=== PATIENT | female | born 1965 | race African-American/Black ===

== ENCOUNTER 2016-10-13 11:03 | Emergency (ER) | payer SELFPAY ==
[2016-10-13 11:15] VITALS: BP 195/105; BMI 37.8
--- NOTE | 2016-10-13 11:31 | DR.GENAD ---
HPI - PCP Primary Care Physician: NFD - Complaint/Symptoms Chief Complaint Doctors Comments: Patient states that she has a uterine firbroid and when it gets bigger she starts to having vaginal bleeding. The SOB is due to vaginal discharge. She has not physician. She goes to the [facility]. Chief Complaint:: VAGINAL BLEEDING AND SOB - Source History Provided: Patient - Mode of Arrival Mode of Arrival: Ambulatory - Timing Onset of Chief Complaint: 10/12/16 PMH - PMH Past Medical History: Yes Past Medical History: Anemia, Hypertension Past Surgical History: No Surgical History: No History - Family History History of Family Medical Conditions: Yes Family Medical History: Diabetes Mellitus, Hypertension - Social History Does patient currently use any type of tobacco product: Yes Type of Tobacco Use: Cigarettes How many years tobacco product used: 10 Alcohol Use: Occasionally Do you use any recreational Drugs:: No Lives With: Alone Lives Where: Home - infectious screening In the last 2 months have you had wt loss of >10#?: NO Have you had fever, night sweats or hemotysis?: No Have you traveled outside the country in the last 6 months?: No Isolation: Standard ROS - Review of Systems Eyes: No Symptoms Reported ENTM: See HPI Respiratoy: No Symptoms Reported Cardiovascular: No Symptoms Reported Gastrointestinal/Abdominal: No Symptoms Reported, Abdominal Pain PE - Vital Signs Vitals: Temperature 98.2 F Pulse Rate 66 Respiratory Rate 16 Blood Pressure [Right Arm] 156/84 Blood Pressure [Left Arm] 178/85 Blood Pressure 195/105 O2 Sat by Pulse Oximetry 100 - General Limitations: No Limitations General Appearance: Alert, In No Apparent Distress - Head Head Exam: Normal Inspection, Atraumatic - Eyes Eye exam: Normal Appearance, PERRL, EOMI - ENT External Ear Exam: Normal External Inspection TM/Canal Exam: Bilateral Normal Nose Exam: Normal Nose Exam Mouth Exam: Normal Inspection Throat Exam: Normal Inspection - Neck Neck Exam: Normal Inspection, Full ROM - Chest Chest Inspection: Normal Inspection - Respiratory Respiratory Exam: Bilateral Clear to Auscultation - Cardiovascular Cardiovascular Exam: Regular Rate, Normal Rhythm - Abdominal Exam Abdominal Exam: Normal Inspection, Normal Bowel Sounds Abdominal Tenderness: negative: RUQ, RLQ, LUQ, LLQ, Epigastrium, Suprapubic, Diffuse, Mild, Moderate, Severe, Other - Extremities Extremities Exam: Normal Inspection, Full ROM - Back Back Exam: Normal Inspection - Neurologic Neurological Exam: Alert, Oriented X3, CN II-XII Intact - Psychiatric Psychiatric Exam: Normal Affect - Skin Skin Exam: Warm, Dry, Intact ROR - Labs Reviewed Laboratory Results Reviewed?: Yes Result Diagrams: 10/13/16 12:25 10/13/16 12:25 Laboratory: WBC 6.4 X10^3/uL (3.6-10.0) 10/13/16 12: RBC 4.83 X10^6/uL (3.5-5.4) 10/13/16 12:25 Hgb 11.6 g/dL (12.0-16.0) L 10/13/16 12: Hct 35.4 % (36.0-47.0) L 10/13/16 12: MCV 73.4 fL (80.0-100.0) L 10/13/16 12: MCH 24.1 pg (27.0-34.0) L 10/13/16 12: MCHC 32.8 g/dL (33.0-35.0) L 10/13/16 12: RDW 20.1 % (11.6-16.5) H 10/13/16 12:25 Plt Count 253 X10^3/uL (150.0-450.0) 10/13/16 12:25 Plt Count Comment Adequate (ADEQUATE) 10/13/16 12: MPV 9.1 fL (7.4-11.0) 10/13/16 12:25 Neut % 57.4 % (42.0-75.0) 10/13/16 12: Lymph % 24.9 % (21.0-51.0) 10/13/16 12:25 [place] % 11.1 % (0.0-13.0) 10/13/16 12:25 Eos % 5.1 % (0.9-2.9) H 10/13/16 12:25 Baso % 1.5 % (0.2-1.0) H 10/13/16 12:25 Neut # 3.7 x10^3/uL (2.2-4.8) 10/13/16 12:25 Lymph # 1.6 X10^3/uL (1.3-2.9) 10/13/16 12:25 [place] # 0.7 x10^3/uL (0.3-0.8) 10/13/16 12:25 Eos # 0.3 x10^3/uL (0.0-0.2) H 10/13/16 12:25 Baso # 0.1 X10^3/uL (0.0-0.1) 10/13/16 12:25 Absolute Nucleated RBC 0.3 /100WBC 10/13/16 12:25 Plt Morphology Comment Normal (NORMAL) 10/13/16 12:25 RBC Morphology Normal (NORMAL) 10/13/16 12:25 Sodium 140 mmol/L (136-145) 10/13/16 12:25 Corrected Sodium TNP 10/13/16 12:25 Potassium 4.1 mmol/L (3.5-5.1) 10/13/16 12:25 Chloride 105 mmol/L (98-107) 10/13/16 12:25 Carbon Dioxide 27.8 mmol/L (21-32) 10/13/16 12:25 BUN 16 mg/dL (7-18) 10/13/16 12:25 Creatinine 0.78 mg/dL (0.55-1.02) 10/13/16 12:25 Est GFR (MDRD) Af Amer > 60 (>60) 10/13/16 12:25 Est GFR (MDRD) Non-Af > 60 (>60) 10/13/16 12:25 Glucose 100 mg/dL (65-99) H 10/13/16 12:25 Calcium 8.5 mg/dL (8.5-10.1) 10/13/16 12:25 Corrected Calcium 9.1 mg/dL (8.5-10.1) 10/13/16 12:25 Total Bilirubin 0.30 mg/dL (0.2-1.0) 10/13/16 12:25 AST 24 Units/L (15-37) 10/13/16 12:25 ALT 29 Units/L (12-78) 10/13/16 12:25 Alkaline Phosphatase 85 Units/L (46-116) 10/13/16 12:25 B-Natriuretic Peptide 23.4 pg/mL (0-79) 10/13/16 12:25 Total Protein 8.2 g/dL (6.4-8.2) 10/13/16 12:25 Albumin 3.2 g/dL (3.4-5.0) L 10/13/16 12:25 Globulin 5.0 g/dL (2.5-4.5) H 10/13/16 12:25 Albumin/Globulin Ratio 0.6 Ratio (1.1-2.1) L 10/13/16 12:25 - Diagnosis Discharge Problem: Dysfunctional uterine bleeding - Discharge Plan Condition: Stable - Follow ups/Referrals Follow ups/Referrals: NFD,None [Primary Care Provider] - 3 days - Instructions
--- NOTE | 2016-10-13 12:41 | RAD ---
HISTORY: Shortness of breath Study: Two view chest Comparison: 10/28/2013 Findings: The lungs are clear without consolidation, effusion or pneumothorax. The cardiac and mediastinal co ntours are within normal limits. The soft tissues are unremarkable. IMPRESSION: 1. No acute cardiopulmonary abnormality. Reported By:
[2016-10-13 12:43] LABS: BASOPHILS # (AUTO) 0.1 X10^3/uL (0.0-0.1); BASOPHILS % (AUTO) 1.5 % (0.2-1.0); EOSINOPHILS # (AUTO) 0.3 x10^3/uL (0.0-0.2); EOSINOPHILS % (AUTO) 5.1 % (0.9-2.9); HEMATOCRIT 35.4 % (36.0-47.0); HEMOGLOBIN 11.6 g/dL (12.0-16.0); LYMPHOCYTES # (AUTO) 1.6 X10^3/uL (1.3-2.9); LYMPHOCYTES % (AUTO) 24.9 % (21.0-51.0); MEAN CORPUSCULAR HEMOGLOBIN 24.1 pg (27.0-34.0); MEAN CORPUSCULAR HGB CONC 32.8 g/dL (33.0-35.0); MEAN CORPUSCULAR VOLUME 73.4 fL (80.0-100.0); MEAN PLATELET VOLUME 9.1 fL (7.4-11.0); MONOCYTES # (AUTO) 0.7 x10^3/uL (0.3-0.8); MONOCYTES % (AUTO) 11.1 % (0.0-13.0); NEUTROPHILS # (AUTO) 3.7 x10^3/uL (2.2-4.8); NEUTROPHILS % (AUTO) 57.4 % (42.0-75.0); PLATELET COUNT 253 X10^3/uL (150.0-450.0); RED BLOOD COUNT 4.83 X10^6/uL (3.5-5.4); RED CELL DISTRIBUTION WIDTH 20.1 % (11.6-16.5); WHITE BLOOD COUNT 6.4 X10^3/uL (3.6-10.0)
[2016-10-13 12:58] LABS: B-TYPE NATRIURETIC PEPTIDE 23.4 pg/mL (0-79)
[2016-10-13 12:59] LABS: PLATELET MORPHOLOGY COMMENT NORMAL (NORMAL)
[2016-10-13 13:09] LABS: ALANINE AMINOTRANSFERASE 29 Units/L (12-78); ALBUMIN 3.2 g/dL (3.4-5.0); ALKALINE PHOSPHATASE 85 Units/L (46-116); ASPARTATE AMINO TRANSFERASE 24 Units/L (15-37); BLOOD UREA NITROGEN 16 mg/dL (7-18); CALCIUM 8.5 mg/dL (8.5-10.1); CARBON DIOXIDE 27.8 mmol/L (21-32); CHLORIDE 105 mmol/L (98-107); COR CA(FOR HYPOALB) 9.1 mg/dL (8.5-10.1); CREATININE 0.78 mg/dL (0.55-1.02); GLUCOSE 100 mg/dL (65-99); SODIUM 140 mmol/L (136-145); TOTAL PROTEIN 8.2 g/dL (6.4-8.2); eGFR BLACK RACES > 60 (>60); eGFR NON BLACK RACES > 60 (>60)
== END 2016-10-13 13:36 | disposition home or self-care (01) ==
LOC: ER 11:03
DX: N93.8 Other specified abnormal uterine and vaginal bleeding (principal)
CPT/HCPCS: 36415; 71020; 80053; 83880; 85025; 99282

== ENCOUNTER 2018-08-15 10:10 | Observation (INO) ==
[2018-08-15] MEDS ORDERED: NS 1000 ML 1,000 ML ONE (10:30)
[2018-08-15] MEDS ORDERED: NS 1000 ML 1,000 ML IV ONE (10:31)
[2018-08-15 10:44] LABS: BASOPHILS # (AUTO) 0.1 X10^3/uL (0.0-0.1); BASOPHILS % (AUTO) 1.1 % (0.2-1.0); EOSINOPHILS # (AUTO) 0.1 x10^3/uL (0.0-0.2); EOSINOPHILS % (AUTO) 1.4 % (0.9-2.9); HEMATOCRIT 47.1 % (36.0-47.0); HEMOGLOBIN 16.1 g/dL (12.0-16.0); LYMPHOCYTES # (AUTO) 3.2 X10^3/uL (1.3-2.9); MEAN CORPUSCULAR HGB CONC 34.1 g/dL (33.0-35.0); MEAN CORPUSCULAR VOLUME 85.1 fL (80.0-100.0); MEAN PLATELET VOLUME 9.8 fL (7.4-11.0); NEUTROPHILS # (AUTO) 2.6 x10^3/uL (2.2-4.8); NEUTROPHILS % (AUTO) 37.5 % (42.0-75.0); PLATELET COUNT 111 X10^3/uL (150.0-450.0); RED BLOOD COUNT 5.54 X10^6/uL (3.5-5.4); RED CELL DISTRIBUTION WIDTH 14.4 % (11.6-16.5); WHITE BLOOD COUNT 6.9 X10^3/uL (3.6-10.0)
[2018-08-15] MEDS ORDERED: ADENOCARD INJ 6 MG IVP ONE (11:03)
[2018-08-15] MEDS ORDERED: ADENOCARD INJ 6 MG ONE (11:05)
--- NOTE | 2018-08-15 11:14 | RAD ---
HISTORY: Tachycardia, angina, cardiomyopathy, hypertension Study: Single-view chest, done portably Comparison: 04/12/2018. Findings: Trachea is midline. Heart size is upper normal with aortic uncoiling. There is very mild hyperinflation of the lungs without infiltrate, CHF or pleural fluid. There are increased interstitial markings bilaterally which appear chronic. IMPRESSION: Hypertensive configuration. Mild hyperinflation of the lungs with stable increased interstitial markings bilaterally. Reported By:
[2018-08-15 11:29] LABS: CKMB % 1.4 % (<4); CREATINE KINASE 79 Units/L (26-192); CREATINE KINASE MB 1.1 ng/mL (0-4.0); MAGNESIUM 1.9 mg/dL (1.7-2.9); TROPONIN I < 0.02 ng/mL (0-1.5); TSH (3RD GENERATION) 1.742 uIU/mL (0.358-3.74)
--- NOTE | 2018-08-15 11:34 | DR.EXTPAIN ---
HPI Time seen Time Seen by Provider: 08/15/18 10:31 PCP Primary Care Physician: pauly Complaint/Symptoms Chief Complaint Doctor Comments: Patient presented to the ED with complaint of sudden pounding fast heart beating. She denies a history of cardiopulmonary disease. Admits to 5-6 cigarettes daily. Does not have a physician and has not seen one in several years. Upon arrival her HR 170. EKG revealed Sinus tach at 160/min. She converted to Rate of 86/min after adenosine Chief Complaint:: patient stated she was cooking a ham and her heart started pounding and she felt like she was running. Source History Provided: Patient Mode of arrival Mode of Arrival: Ambulatory Timing Onset of Chief Complaint: 08/15/18 PMH PMH Past Medical History: Yes Past Medical History: Anemia, Angina and Hypertension Past Surgical History: No Family History History of Family Medical Conditions: Yes Family Medical History: Diabetes Mellitus and Hypertension Social History Does patient currently use any type of tobacco product: Yes Have you used tobacco products in the last 12 months: Yes Type of Tobacco Use: None Does any household member use tobacco: No Alcohol Use: Occasionally Do you use any recreational Drugs:: No Lives With: Family Lives Where: Home infectious screening In the last 2 months have you had wt loss of >10#?: NO Have you had fever, night sweats or hemotysis?: No Have you traveled outside the country in the last 6 months?: No Isolation: Standard PE Vital Signs Vitals: Temperature 98.3 F Pulse Rate [Apical] 63 Pulse Rate 166 Respiratory Rate 27 Blood Pressure [Right Arm] 173/87 Blood Pressure [Left Arm] 193/85 Blood Pressure 198/138 O2 Sat by Pulse Oximetry 100 General Limitations: No Limitations and Language Barrier General Appearance: Alert and In No Apparent Distress Head Head Exam: Normal Inspection and Normocephalic Eyes Eye exam: Normal Appearance, PERRL and EOMI ENT ENT Exam: Normal Exam, Normal Oropharynx and Normal External Ear Exam Neck Neck Exam: Normal Inspection, Full ROM and Trachea Midline Chest Chest Inspection: Normal Inspection, Symmetric Chest Wall Rise and Tenderness Respiratory Respiratory Exam: Normal Lung Sounds Bilat and Accessory Muscle Use Respiratory Exam: Bilateral: Clear to Auscultation Cardiovascular Cardiovascular Exam: Regular Rate and Normal Rhythm Abdominal Exam Abdominal Exam: Normal Inspection, Normal Bowel Sounds and Soft Abdominal Tenderness: RUQ, RLQ and LUQ Extremities Extremities Exam: Normal Inspection and Full ROM Upper Extremities Shoulder Exam: Normal Inspection and Full ROM Arm Exam: Normal Inspection Elbow Exam: Normal Inspection Forearm Exam: Normal Inspection and Full ROM Neuromotor Exam: Normal Exam Neurosensory Exam: Normal Exam Lower Extremities Hip/Pelvis Exam: Normal Inspection and Full ROM Upper Leg Exam: Swelling Knee Exam: Normal Inspection Lower Leg Exam: Normal Inspection and Full ROM Ankle Exam: Normal Inspection Foot/Toe Exam: Normal Inspection Neurovascular/Tendon Exam: Normal Capillary Refill Back Back Exam: Normal Inspection, Full ROM, (R) CVA Tenderness and (L) CVA Tenderness Neurological Neurological Exam: Alert, Oriented X3 and CN II-XII Intact Psychiatric Psychiatric Exam: Normal Affect and Normal Mood Skin Skin Exam: Warm, Dry and Intact COURSE Consultation Called: 12:05 Consultation Comments: Dr. Stockton agreed to admit for further evaluation ROR Labs Reviewed Laboratory Results Reviewed?: Yes Result Diagrams: 08/15/18 10:55 08/15/18 10:55 Laboratory: WBC 6.9 X10^3/uL (3.6-10.0) 08/15/18 10:55 RBC 5.54 X10^6/uL (3.5-5.4) H 08/15/18 10:55 Hgb 16.1 g/dL (12.0-16.0) H 08/15/18 10:55 Hct 47.1 % (36.0-47.0) H 08/15/18 10:55 MCV 85.1 fL (80.0-100.0) 08/15/18 10:55 MCH 29.0 pg (27.0-34.0) 08/15/18 10:55 MCHC 34.1 g/dL (33.0-35.0) 08/15/18 10:55 RDW 14.4 % (11.6-16.5) 08/15/18 10:55 Plt Count 111 X10^3/uL (150.0-450.0) L 08/15/18 10:55 MPV 9.8 fL (7.4-11.0) 08/15/18 10:55 Neut % (Auto) 37.5 % (42.0-75.0) L 08/15/18 10:55 Lymph % (Auto) 46.0 % (21.0-51.0) 08/15/18 10:55 [place] % (Auto) 14.0 % (0.0-13.0) H 08/15/18 10:55 Eos % (Auto) 1.4 % (0.9-2.9) 08/15/18 10:55 Baso % (Auto) 1.1 % (0.2-1.0) H 08/15/18 10:55 Neut # (Auto) 2.6 x10^3/uL (2.2-4.8) 08/15/18 10:55 Lymph # (Auto) 3.2 X10^3/uL (1.3-2.9) H 08/15/18 10:55 [place] # (Auto) 1.0 x10^3/uL (0.3-0.8) H 08/15/18 10:55 Eos # (Auto) 0.1 x10^3/uL (0.0-0.2) 08/15/18 10:55 Baso # (Auto) 0.1 X10^3/uL (0.0-0.1) 08/15/18 10:55 Absolute Nucleated RBC 0.4 /100WBC 08/15/18 10:55 INR Target Range - 08/15/18 10:55 INR 0.94 (0.8-1.3) 08/15/18 10:55 APTT 28.9 SECONDS (22.9-36.5) 08/15/18 10:55 PTT Comment - 08/15/18 10:55 Sodium 139 mmol/L (136-145) 08/15/18 10:55 Corrected Sodium TNP 08/15/18 10:55 Potassium 3.7 mmol/L (3.5-5.1) 08/15/18 10:55 Chloride 102 mmol/L (98-107) 08/15/18 10:55 Carbon Dioxide 27.9 mmol/L (21-32) 08/15/18 10:55 BUN 14 mg/dL (7-18) 08/15/18 10:55 Creatinine 0.83 mg/dL (0.55-1.02) 08/15/18 10:55 Est GFR (MDRD) Af Amer > 60 (>60) 08/15/18 10:55 Est GFR (MDRD) Non-Af > 60 (>60) 08/15/18 10:55 Glucose 107 mg/dL (65-99) H 08/15/18 10:55 Calcium 9.0 mg/dL (8.5-10.1) 08/15/18 10:55 Corrected Calcium TNP 08/15/18 10:55 Magnesium 1.9 mg/dL (1.7-2.9) 08/15/18 10:55 Total Bilirubin 0.40 mg/dL (0.2-1.0) 08/15/18 10:55 AST 30 Units/L (15-37) 08/15/18 10:55 ALT 40 Units/L (12-78) 08/15/18 10:55 Alkaline Phosphatase 132 Units/L (46-116) H 08/15/18 10:55 Creatine Kinase 64 Units/L (26-192) 08/15/18 23:20 CK-MB (CK-2) 1.2 ng/mL (0-4.0) 08/15/18 23:20 CK/CKMB % Calc 1.9 % (<4) 08/15/18 23:20 Troponin I 0.04 ng/mL (0-1.5) 08/15/18 23:20 C-Reactive Protein 13.00 mg/L (0-3.0) H 08/15/18 10:55 Total Protein 8.6 g/dL (6.4-8.2) H 08/15/18 10:55 Albumin 3.7 g/dL (3.4-5.0) 08/15/18 10:55 Globulin 4.9 g/dL (2.5-4.5) H 08/15/18 10:55 Albumin/Globulin Ratio 0.8 Ratio (1.1-2.1) L 08/15/18 10:55 TSH 3rd Generation 1.742 uIU/mL (0.358-3.74) 08/15/18 10:55 Specimen Type Clean catch urine 08/15/18 13:04 Urine Color Yellow (YELLOW) 08/15/18 13:04 Urine Appearance Clear (CLEAR) 08/15/18 13:04 Urine pH 7.0 (5.0 - 8.0) 08/15/18 13:04 Ur Specific [place] 1.005 (1.000-1.030) 08/15/18 13:04 Urine Protein 1+ (NEGATIVE) 08/15/18 13:04 Urine Glucose (UA) Negative (NEGATIVE) 08/15/18 13:04 Urine Ketones Negative (NEGATIVE) 08/15/18 13:04 Urine Occult Blood 2+ (NEGATIVE) 08/15/18 13:04 Urine Nitrite Negative (NEGATIVE) 08/15/18 13:04 Urine Bilirubin Negative (NEGATIVE) 08/15/18 13:04 Urine Urobilinogen Normal (NORMAL) 08/15/18 13:04 Ur Leukocyte Esterase Negative (NEGATIVE) 08/15/18 13:04 Urine RBC 0-2 /HPF (NONE SEEN) 08/15/18 13:04 Urine WBC 0-2 /HPF (NONE SEEN) 08/15/18 13:04 Ur Squamous Epith Cells Few /HPF (NEGATIVE) 08/15/18 13:04 Urine Bacteria Negative /HPF (NEGATIVE) 08/15/18 13:04 Ur Culture Indicated? No/not indicated 08/15/18 13:04 Urine Opiates Screen Negative (NEG=<300) 08/15/18 23:29 Urine Methadone Screen Negative (NEG=<300) 08/15/18 23:29 Ur Barbiturates Screen Negative (NEG=<200) 08/15/18 23:29 Ur Phencyclidine Scrn Negative (NEG=<25) 08/15/18 23:29 Ur Amphetamines Screen Negative (NEG=<1000) 08/15/18 23:29 U Benzodiazepines Scrn Negative (NEG=<200) 08/15/18 23:29 Urine Cocaine Screen Negative (NEG=<300) 08/15/18 23:29 U Marijuana (THC) Screen Negative (NEG=<50) 08/15/18 23:29 Other Results Comments: Traches is midline. Heart size is upper normal limit with aortic uncoiling. There is very mild hyperinflation of the lungs without infiltrate,CHF or pleural fluid. There are increased interstitial markings bilaterally which appear chronic. Impression: Hypertensive configuration, mild hyperinflation of the lungs with stable increased interstitial markings bilaterally. XRAY XRAY Interpreted by: Radiologist Diagnosis Discharge Problem: Chest pain in adult, Hypertensive urgency
[2018-08-15] MEDS ORDERED: CATAPRES TAB 0.1 MG PO ONE ×2 (12:02→12:57)
[2018-08-15] MEDS ORDERED: CATAPRES TAB 0.1 MG ONE (12:04)
[2018-08-15 12:59] LABS: ALANINE AMINOTRANSFERASE 40 Units/L (12-78); ALBUMIN 3.7 g/dL (3.4-5.0); ALKALINE PHOSPHATASE 132 Units/L (46-116); ASPARTATE AMINO TRANSFERASE 30 Units/L (15-37); BLOOD UREA NITROGEN 14 mg/dL (7-18); CARBON DIOXIDE 27.9 mmol/L (21-32); CHLORIDE 102 mmol/L (98-107); CREATININE 0.83 mg/dL (0.55-1.02); SODIUM 139 mmol/L (136-145); TOTAL PROTEIN 8.6 g/dL (6.4-8.2); eGFR NON BLACK RACES > 60 (>60)
[2018-08-15 13:23] LABS: BILIRUBIN,URINE NEGATIVE (NEGATIVE); BLOOD/HEMOGLOBIN,URINE 2+ (NEGATIVE); GLUCOSE, URINE NEGATIVE (NEGATIVE); KETONES,URINE NEGATIVE (NEGATIVE); LEUKOCYTE ESTERASE ,URINE NEGATIVE (NEGATIVE); NITRITES,URINE NEGATIVE (NEGATIVE); PROTEIN,URINE 1+ (NEGATIVE); UROBILINOGEN,URINE NORMAL (NORMAL)
[2018-08-15 13:37] LABS: APPEARANCE,URINE CLEAR (CLEAR); COLOR,URINE YELLOW (YELLOW)
[2018-08-15 13:38] LABS: BACTERIA,URINE NEGATIVE /HPF (NEGATIVE); RBC,URINE 0-2 /HPF (NONE SEEN); SQUAMOUS EPITHELIAL CELL,UR FEW /HPF (NEGATIVE)
[2018-08-15] MEDS ORDERED: NICOTINE PATCH TD ONE (16:06)
[2018-08-15 16:12] VITALS: BMI 42.0
[2018-08-15] MEDS: NICOTINE PATCH TD SCH ×2 (17:16→17:17)
[2018-08-15 17:49] LABS: CKMB % 2.3 % (<4); CREATINE KINASE MB 1.7 ng/mL (0-4.0); TROPONIN I 0.03 ng/mL (0-1.5)
[2018-08-16 00:12] LABS: CKMB % 1.9 % (<4); CREATINE KINASE MB 1.2 ng/mL (0-4.0)
[2018-08-16 00:27] LABS: TROPONIN I 0.04 ng/mL (0-1.5)
[2018-08-16] MEDS ORDERED: CATAPRES TAB 0.1 MG PO ONE (02:52)
[2018-08-16] MEDS ORDERED: CATAPRES TAB 0.1 MG ONE (02:53)
--- NOTE | 2018-08-16 06:38 | RAD ---
HISTORY: 53-year-old female with hypertensive urgency. Study: Frontal view of the chest. Comparison: Chest radiograph 08/15/2018 Findings: Overlying monitoring leads degraded examination. The trachea is midline. The cardiac silhouette is stably enlarged with continued prominence perihilar lung markings and interstitium. The lungs are clear without focal consolidation, effusion or pneumothorax. Soft tissues are unremarkable. Osseous structures are unremarkable. IMPRESSION: 1. Cardiomegaly with findings suggesting COPD. Reported By:
[2018-08-16 06:44] LABS: ALANINE AMINOTRANSFERASE 36 Units/L (12-78); ALBUMIN 3.2 g/dL (3.4-5.0); ALKALINE PHOSPHATASE 118 Units/L (46-116); ASPARTATE AMINO TRANSFERASE 26 Units/L (15-37); BLOOD UREA NITROGEN 15 mg/dL (7-18); CARBON DIOXIDE 27.5 mmol/L (21-32); CHLORIDE 103 mmol/L (98-107); CHOL/HDL RATIO 3.5 (0.0-5.0); CHOLESTEROL 194 mg/dL (0-200); COR CA(FOR HYPOALB) 9.6 mg/dL (8.5-10.1); CREATININE 0.71 mg/dL (0.55-1.02); HDL CHOLESTEROL 56 mg/dL (40-60); SODIUM 138 mmol/L (136-145); TOTAL PROTEIN 7.7 g/dL (6.4-8.2); TRIGLYCERIDES 154 mg/dL (0-150); eGFR NON BLACK RACES > 60 (>60)
[2018-08-16 07:00] LABS: BASOPHILS % (AUTO) 1.2 % (0.2-1.0); EOSINOPHILS # (AUTO) 0.1 x10^3/uL (0.0-0.2); EOSINOPHILS % (AUTO) 1.6 % (0.9-2.9); LYMPHOCYTES # (AUTO) 1.5 X10^3/uL (1.3-2.9); LYMPHOCYTES % (AUTO) 41.5 % (21.0-51.0); MEAN CORPUSCULAR HEMOGLOBIN 28.5 pg (27.0-34.0); MEAN CORPUSCULAR HGB CONC 33.7 g/dL (33.0-35.0); MEAN CORPUSCULAR VOLUME 84.4 fL (80.0-100.0); MEAN PLATELET VOLUME 8.8 fL (7.4-11.0); MONOCYTES # (AUTO) 0.5 x10^3/uL (0.3-0.8); MONOCYTES % (AUTO) 12.6 % (0.0-13.0); NEUTROPHILS # (AUTO) 1.5 x10^3/uL (2.2-4.8); NEUTROPHILS % (AUTO) 43.1 % (42.0-75.0); PLATELET COUNT 178 X10^3/uL (150.0-450.0); RED BLOOD COUNT 4.62 X10^6/uL (3.5-5.4); WHITE BLOOD COUNT 3.6 X10^3/uL (3.6-10.0)
[2018-08-16 07:04] LABS: HEMOGLOBIN 13.2 g/dL (12.0-16.0)
--- NOTE | 2018-08-16 08:28 | DR.H&P ---
H&P - History & Physical for Day of: H&P Date: 08/15/18 - Chief Complaint Chief Complaint: INCREASED HEART RATE - History of Present Illness History of Present Illness: IS A 53 YEAR OLD BLACK FEMALE WHO PRESENTED TO THE ER WITH COMPLAINTS OF INCREASED HEART RATE. PATIENT REPORTS THAT SHE WAS COOKING WHEN SHE BEGAN TO FEEL LIKE HER HEART WAS RACHING. UPON ARRIVAL TO THE ER, HR WAS NOTED T OBE 170bpm. VITALS WERE 98.6-170-16-98%-198/138. LABS WERE OBTAINED. ABNORMAL LAB VALUES INCLUDE THE FOLLOWING: RBC 5.54, HGB 16.1, HCT 47.1, PLT COUNT 111, CRP 13.0, GLUCOSE 107, ALK PHOS 132, TOTAL PROTEIN 8.6, GLOBULIN 4.9. CHEST XRAY WAS OBTAINED AND REVEALED: Hypertensive configuration. Mild hyperinflation of the lungs with stable increased interstitial markings bilaterally. EKG REVEALED: SINUS TACHYCARDIA WITH HR 160. SHE WAS GIVEN A DENOSINE 6MG IV X 1. SHE CONVERTED TO NORMAL SINUS RHYTHM WITH HR IN THE 80S. SHE WAS ALSO GIVEN CATAPRES 0.1MG X 2 DOSES AND A NORMAL SALINE BOLUS IN THE ER. BLOOD PRESSURE DECREASED TO 149/74. SHE WAS ADMITTED TO THE [facility] UNIT ON THE STATISTICAL CLERK FOR FURTHER EVALUATION AND TREATMENT OF SVT AND HYPERTENSIVE URGENCY. WE PLAN TO OBTAIN SERIAL CARDIAC ENZYMES AND EKGS AND CONTINUE TO MONITOR. - Past Medical History Past Medical History: Angina, Hypertension, Anemia - Past Surgical History Surgical History: No History - Family History Family Medical History: Diabetes Mellitus, Hypertension - Social History Does patient currently use any type of tobacco product: Yes Have you used tobacco products in the last 12 months: Yes Type of Tobacco Use: None How many years tobacco product used: 30 Does any household member use tobacco: No Alcohol Use: Occasionally - Medications Home Medications: No Known Drug Allergies Allergy (Verified 04/08/18 20:48) CONTINUE taking the following medications NK 08/15/18 [History] - Physical Exam Vital Signs: Temperature 98.2 F Pulse Rate [Apical] 57 Pulse Rate 166 Respiratory Rate 18 Blood Pressure [Right Arm] 173/87 Blood Pressure [Left Arm] 162/74 Blood Pressure 198/138 O2 Sat by Pulse Oximetry 97 - Allergies Allergies/Adverse Reactions: Allergies Allergy/AdvReac Type Severity Reaction Status Date / Time No Known Drug Allergies Allergy Verified 04/08/18 20:48
[2018-08-16] MEDS: NICOTINE PATCH TD SCH (10:00)
[2018-08-16] MEDS ORDERED: LOPRESSOR TAB 25 MG PO SCH (11:00)
[2018-08-16 14:10] VITALS: BP 179/92
== END 2018-08-16 15:30 | disposition home or self-care (01) ==
LOC: ER 10:16 → ICU 10:16
PROVIDERS: ADMIT Internal Medicine; ATTEND Internal Medicine
DX: R07.89 Other chest pain; R79.82 Elevated C-reactive protein (CRP); I16.0 Hypertensive urgency; I47.1 Supraventricular tachycardia
CPT/HCPCS: 36415; 71010; 71045; 80053; 80061; 80307; 81001; 82550; 82553; 83735; 84443; 84484; 85025; 85610; 85730; 86140; 93005; 93306; 96365; 96374; 99284; A4216; A4222; G0378; G0434; J0153; J7030